=== PATIENT | female | born 2000 | race Hispanic/Latino ===

== ENCOUNTER 2019-03-20 16:32 | Emergency (ER) | payer OTHER ==
[2019-03-20] MEDS ORDERED: ATIVAN IV STA (17:16)
[2019-03-20] MEDS ORDERED: NACL 0.9% 1000 ML 2,000 ML IV ONE (17:16)
--- NOTE | 2019-03-20 17:18 | Emergency Department Report ---
ED General Adult HPI - General Chief complaint: Seizure Stated complaint: SEIZURE Time Seen by Provider: 03/20/19 17:08 Source: patient, EMS (EMS documentation not available at the time of chart dictation), RN notes reviewed Mode of arrival: Stretcher Limitations: No Limitations - History of Present Illness Initial comments: This is a 18-year-old female. This patient is not known to this provider previously. The patient reportedly has a history of depression, psychosis, possible pseudoseizure. The patient is sent to the ER for evaluation of pseud oseizure and high blood pressure. Apparently, the patient has been having pseudoseizure and high blood pressure. In the emergency room, the patient complains of lower abdominal pain which has been present for weeks. She denies headache, neck pain, chest pain. She reports that she feels anxious. The patient states she is not homicidal or suicidal. The patient states she does not have any vaginal discharge. The patient states she does not have any urinary symptoms. The patient states that she is anxious. She is not able to describe exacerbating or relieving factors to her anxiety. While in the ER, the patient had a generalized convulsive event, with prompt return of normal mental status. The patient states that she was previously in [place] in October of this year, and she reports that she received haloperidol while in [place], and reports swelling of the tongue and mouth. Apparently, as per includes documentation, patient has been having nausea, vomiting and constipation, and intermittent tachycardia. A documented blood pressure is 166/68. As needed Zofran was prescribed, hydralazine was also prescribed, and addition to metoprolol. Today, apparently, she had nausea and vomiting, Zofran was discontinued, and Phenergan was initiated. Prilosec was also initiated. Aspirin close documentation, "she induced vomiting as per staff." -: Gradual, week(s) Location: abdomen Quality: other Consistency: other Improves with: other Worsens with: other - Related Data Allergies Allergy/AdvReac Type Severity Reaction Status Date / Time aripiprazole [From Abilify] Allergy Unknown Verified 03/20/19 16:58 brexpiprazole [From Rexulti] Allergy Unknown Verified 03/20/19 17:00 fentanyl Allergy Unknown Verified 03/20/19 16:58 fluoxetine [From Prozac] Allergy Unknown Verified 08/19/19 16:58 haloperidol [From Haldol] Allergy Unknown Verified 03/20/19 16:58 lactase [From Dairy Aid] Allergy Unknown Verified 03/20/19 16:58 mirtazapine [From Remeron] Allergy Unknown Verified 03/20/19 16:58 ED Review of Systems ROS: Stated complaint: SEIZURE Other details as noted in HPI Constitutional: malaise. denies: fever Eyes: denies: eye discharge ENT: denies: epistaxis Respiratory: denies: cough Cardiovascular: palpitations Gastrointestinal: abdominal pain, nausea, vomiting, constipation Genitourinary: denies: dysuria, discharge Musculoskeletal: myalgia Skin: denies: lesions Neurological: weakness Psychiatric: anxiety. denies: homicidal thoughts, suicidal thoughts ED Past Medical Hx - Past Medical History Previous Medical History?: Yes Hx GERD: Yes Hx Seizures: Yes Additional medical history: Rupal Valve Prolapse, Carpel Tunnel - Surgical History Past Surgical History?: No - Social History Smoking Status: Never Smoker Substance Use Type: None ED Physical Exam - General Limitations: No Limitations General appearance: alert, anxious, obese - Head Head exam: Present: atraumatic, normocephalic - Eye Eye exam: Present: normal appearance, EOMI. Absent: nystagmus - ENT ENT exam: Present: normal exam, normal orophraynx, mucous membranes moist, normal external ear exam - Neck Neck exam: Present: normal inspection, full ROM. Absent: tenderness, meningismus - Respiratory Respiratory exam: Present: normal lung sounds bilaterally. Absent: respiratory distress - Cardiovascular Cardiovascular Exam: Present: normal rhythm, tachycardia, normal heart sounds. Absent: systolic murmur, diastolic murmur, rubs, gallop - GI/Abdominal GI/Abdominal exam: Present: soft. Absent: distended, tenderness, guarding, rebound, rigid, pulsatile mass - Extremities Exam Extremities exam: Present: normal inspection, full ROM, other (2+ pulses noted in the bilateral upper, lower extremities. There is no long bony tenderness. The pelvis is stable. Muscular compartments are soft.). Absent: pedal edema, joint swelling, calf tenderness - Back Exam Back exam: Present: normal inspection, full ROM. Absent: tenderness, CVA tenderness (R), CVA tenderness (L), paraspinal tenderness, vertebral tenderness - Neurological Exam Neurological exam: Present: alert, other (there is no facial droop. The tongue is midline. The extraocular movements are intact bilaterally. 5/ 5 strength bilateral upper, lower extremities. Sensation intact to light touch bilateral upper, lower extremities bilaterally. Sensation is intact to light touch in the bilateral V1, V2, V3 distribution.). Absent: motor sensory deficit - Psychiatric Psychiatric exam: Present: anxious - Skin Skin exam: Present: warm, dry, intact, normal color. Absent: rash ED Course Vital Signs 03/20/19 03/20/19 03/20/19 16:51 16:54 17:43 Temperature 98.1 F 98.1 F Pulse Rate 133 H 133 H Respiratory 20 22 20 Rate Blood Pressure 136/67 Blood Pressure 136/67 [Right] O2 Sat by Pulse 97 97 Oximetry 03/20/19 03/20/19 03/20/19 18:56 19:30 20:00 Temperature 98.4 F Pulse Rate 128 H 97 H 99 H Respiratory 16 21 18 Rate Blood Pressure 108/54 Blood Pressure 109/78 114/63 [Right] O2 Sat by Pulse 100 97 96 Oximetry 03/20/19 22:01 Temperature 98.1 F Pulse Rate 98 H Respiratory 18 Rate Blood Pressure Blood Pressure 110/80 [Right] O2 Sat by Pulse 98 Oximetry - Reevaluation(s) Reevaluation #1: 03/20/19 17:35 Differential diagnosis, including but not limited to: Conversion disorder, malingering, pseudoseizure, constipation, self-induced vomiting, constipation, appendicitis, urinary tract infection, dehydration, anxiety Assessment and plan: 18-year-old female sent to the ER for tachycardia, high blood pressure, nausea, vomiting, question constipation, self-induced vomiting, and presumed pseudoseizure. The patient is afebrile with reassuring vital signs at this time, with the exception of tachycardia, which appears to be anxiety related The patient had a generalized convulsive event while in the ER, the discomfort return of normal mental status. 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 Documented high blood pressure is reviewed and appreciated, this ended up itself does not represent an acute medical emergency, and the patient can follow up with an outpatient primary care doctor for elevated blood pressure. Patient also has been documented to have episodes of self-induced nausea and vom iting. Patient is not vomiting at this time. She has been on multiple medications, including Zofran, Phenergan, and metoprolol Suspect patient's presentation is likely psychiatric in nature, and she is not currently on a 1013 at this time, she may benefit from psychiatric optimization after her ER workup is complete. We will also obtain CT scan of the brain, and abdomen/pelvis. Reevaluation #2: 03/20/19 19:15 On repeat evaluation, tachycardia is improved to 116 beats for minute, and then increases. Patient keeps looking at the monitor, and this appears to be largely anxiety driven. She has been given fluids, Ativan, and Geodon. Patient has had a few episodes of shaking, which when she is instructed to stop shaking. CT scans pending at this time. Patient still appears quite anxious, we will give trial of 10 mg phenobarbital IV. 03/20/19 19:19 Reevaluation #3: 03/20/19 20:52 Tachycardia resolved. No additional convulsive activity noted. Laboratory studies reviewed and appreciated. CK of 560 reviewed and appreciated. This will decrease on its own with oral hydration. Patient also given intravenous hydration in the ER. CT scan of brain, abdomen and pelvis pending interpretation. No documented hypertension noted while here in the ER. Reevaluation #4: 03/20/19 21:08 CT scan of the brain negative for acute disease. CT scan of the abdomen pelvis negative for acute disease. Food particles noted in the stomach. No evidence of obstruction. No active vomiting. Tachycardia remains resolved. Patient may be discharged back to psychiatric facility. Highly suspect psychiatric etiology as primary source of patient's symptomatology. However, the patient can follow-up with an outpatient [facility]. ED Medical Decision Making - Lab Data Result diagrams: 03/20/19 17:45 03/20/19 17:45 Vital Signs 03/20/19 03/20/19 16:51 16:54 Temperature 98.1 F 98.1 F Pulse Rate 133 H 133 H Respiratory 20 22 Rate Blood Pressure 136/67 Blood Pressure 136/67 [Right] O2 Sat by Pulse 97 97 Oximetry - EKG Data EKG shows normal: sinus rhythm Rate: tachycardia - EKG Data When compared to previous EKG there are: previous EKG unavailable 03/20/19 17:34 This is a sinus tachycardia, 126 bpm, normal axis, QTC 433 ms, there is motion artifact, borderline high left ventricular voltage, EKG is abnormal, the EKG is not consistent with ST elevation myocardial infarction. - Radiology Data Radiology results: pending, report reviewed, image reviewed Critical care attestation.: If time is entered above; I have spent that time in minutes in the direct care of this critically ill patient, excluding procedure time. ED Disposition Clinical Impression: Convulsion, Elevated blood pressure reading Disposition: [id number]/TX-[id number] PSY HOSP/PSY UNIT Is pt being admited?: No Does the pt Need Aspirin: No Condition: Stable Additional Instructions: Patient should not drive or operate motor vehicles for the next 6 months. Recommend outpatient follow-up with the primary care doctor within the next 2 weeks. Patient may continue prescribed nausea medication, as directed, and may benefit from de-escalation therapy, and calming techniques. On a temporary basis, patient seems to improve with as needed lorazepam, and this may be considered for short-term symptom control. Patient appears to have psychiatrically generated convulsions, and would defer to psychiatric team for primary management of presumed pseudoseizures. Would not recommend antihypertensive therapy at this time, but rather optimization of underlying psychiatric disorder. Patient may follow up with a [facility] for persistent nausea and vomiting, however, this is documented to have been self-induced, therefore, would defer to psychiatric team to optimize this as well, in conjunction with prescribed medicines. Patient may return to the ER right away with any new, worsening or different symptoms, or symptoms not present on the initial emergency room evaluation. At the time of discharge, tachycardia has resolved, and hypertension has resolved. There is no active vomiting at this time. Would also recommend obtaining patient's old medical records from [place], and other facilities, and clarify the nature of her allergies, as it is highly unlikely that the patient is truly allergic to all of the medications that are listed. Referrals: LOBITO EDWARDS MD [Primary Care Provider] - 3-5 Days [facility] [Provider Group] - 3-5 Days [facility] [Provider Group] - 3-5 Days
[2019-03-20 17:51] LABS: Hematocrit 30.7 % (30.3-42.9); Hemoglobin 10.2 gm/dl (10.1-14.3); Mean Corpuscular HGB Conc 33 % (30-34); Mean Corpuscular Volume 82 fl (79-97); Platelet Count 300 K/mm3 (140-440); Red Blood Count 3.75 M/mm3 (3.65-5.03); Red Cell Distribution Width 15.1 % (13.2-15.2)
[2019-03-20] MEDS ORDERED: ATIVAN IV ONE (18:15)
[2019-03-20 18:16] LABS: Alanine Aminotransferase 11 units/L (7-56); Albumin 3.8 g/dL (3.9-5); BUN/Creatinine Ratio 12; Blood Urea Nitrogen 7 mg/dL (7-17); Calcium 8.7 mg/dL (8.4-10.2); Hemolysis Index 4
[2019-03-20] MEDS ORDERED: GEODON IM ONE (18:34)
[2019-03-20] MEDS ORDERED: WATER FOR INJ Sterile (PF) 10 ML ONE (18:46)
[2019-03-20 18:49] LABS: Bilirubin,Urine NEG (Negative); Blood,Urine MOD (Negative); Color,Urine Yellow (Yellow); Protein,Urine <15 mg/dL mg/dL (Negative); Urobilinogen,Urine < 2.0 mg/dL (<2.0)
[2019-03-20 18:56] LABS: WBC,Urine < 1.0 /HPF (0.0-6.0)
--- NOTE | 2019-03-20 20:53 | Cat Scan Report ---
CT ABDOMEN AND PELVIS WITHOUT CONTRAST INDICATION / CLINICAL INFORMATION: lower abd pain. TECHNIQUE: Axial CT images were obtained through the abdomen and pelvis without IV contrast. All CT scans at [facility] location are performed using CT dose reduction for ALARA by means of automated exposure control. COMPARISON: None available. FINDINGS: LOWER CHEST: No significant abnormality. LIVER: No significant abnormality. GALLBLADDER: Mildly contracted but otherwise normal. BILE DUCTS: No significant abnormality. PANCREAS: No significant abnormality. SPLEEN: No significant abnormality. ADRENALS: No significant abnormality. RIGHT KIDNEY and URETER: No significant abnormality. LEFT KIDNEY and URETER: No significant abnormality. STOMACH and SMALL BOWEL: Stomach is moderately distended with food material. No small bowel dilation. COLON: No significant abnormality. APPENDIX: No significant abnormality. PERITONEUM: No free fluid. No free air. No fluid collection. LYMPH NODES: No significant adenopathy. AORTA and ARTERIES: No significant abnormality. IVC and VEINS: No significant abnormality. URINARY BLADDER: No significant abnormality. REPRODUCTIVE ORGANS: No significant abnormality. ADDITIONAL FINDINGS: None. SKELETAL SYSTEM: No significant abnormality. IMPRESSION: 1. No inflammatory process or bowel obstruction. 2. Moderate amount of food material in the stomach. 3. No stones or hydronephrosis. Signer Name: Ronak Pierce MD Signed: 03/20/2019 8:49 PM Workstation Name: [id number]
--- NOTE | 2019-03-20 21:07 | Cat Scan Report ---
CT head/brain wo con INDICATION: Seizure versus pseudoseizure TECHNIQUE: Routine CT head without contrast. Sagittal and coronal reformatted images were obtained. A ll CT scans at this location are performed using CT dose reduction for ALARA by means of automated ex posure control. COMPARISON: None. FINDINGS: BRAIN / INTRACRANIAL CONTENTS: This is a limited CT scan. Poor [id number] is seen in these image s. I do not see space taking lesion or CT findings to suggest schizencephaly are ectopic [place]ue matter. No acute hemorrhage, mass effect, midline shift, hydrocephalus, or acute, large territorial infarct. No chronic infarct or focal atrophy. Normal brain volume and ventricular/sulcal size for age. No sign ificant white matter abnormality. CRANIOCERVICAL JUNCTION: No significant abnormality. ORBITS: No significant abnormality of visualized orbits. SINUSES / MASTOIDS: No significant abnormality of the visualized paranasal sinuses or mastoid air jayson ls. ADDITIONAL FINDINGS: None. IMPRESSION: No focal parenchymal lesion in the brain. Signer Name: Lily Hart MD Signed: 03/20/2019 9:03 PM Workstation Name: [id number]
[2019-03-20 22:02] VITALS: BP 110/80
== END 2019-03-20 23:02 ==
LOC: ED 16:32
DX: R56.9 Unspecified convulsions (principal); K21.9 Gastro-esophageal reflux disease without esophagitis; R03.0 Elevated blood-pressure reading, without diagnosis of hypertension; Z98.890 Other specified postprocedural states; Z88.8 Allergy status to other drugs, medicaments and biological substances; Z88.6 Allergy status to analgesic agent; Z91.011 Allergy to milk products; Z88.3 Allergy status to other anti-infective agents
CPT/HCPCS: 36415; 70450; 74176; 80053; 81001; 82550; 84443; 84702; 85027; 93005; 93010; 96361; 96372; 96374; 96376; 99285; J2060; J3486; J7030; 80320; G0480